=== PATIENT | male | born 1945 | race Hispanic/Latino ===

== ENCOUNTER 2020-09-04 15:20 | Emergency (ER) | payer OTHER ==
[~2020-09-04] VITALS: Ht 172.7 cm; Wt 79.4 kg
[2020-09-04 16:01] VITALS: BP 121/82
== END 2020-09-04 16:04 | disposition home or self-care (01) ==
LOC: EDH 15:20
DX: L91.8 Other hypertrophic disorders of the skin (principal); E78.5 Hyperlipidemia, unspecified; I10 Essential (primary) hypertension; Z88.2 Allergy status to sulfonamides; Z88.0 Allergy status to penicillin
CPT/HCPCS: 99281